=== PATIENT | female | born 1945 ===

== ENCOUNTER 2018-11-19 07:15 | Emergency (ER) | payer OTHER ==
[~2018-11-19] VITALS: Ht 152.4 cm; Wt 46.7 kg
[2018-11-19] MEDS ORDERED: SKELAXIN800 MG PO (16:31)
[2018-11-19] MEDS ORDERED: ONDANSETRON ODT4 MG SL (16:31)
[2018-11-19] MEDS ORDERED: DICLOFENAC SODI50 MG PO (16:31)
== END 2018-11-19 17:24 | disposition home or self-care (01) ==
LOC: ER 07:15
DX: D25.1 Intramural leiomyoma of uterus (principal); D17.71 Benign lipomatous neoplasm of kidney; K57.30 Diverticulosis of large intestine without perforation or abscess without bleeding; R07.89 Other chest pain; R10.11 Right upper quadrant pain